=== PATIENT | female | born 1975 | race Caucasian/White ===

== ENCOUNTER → 2023-10-18 11:58 | Outpatient (REF) | payer OTHER, SELFPAY | LOC: HWWDC 11:58 | PROVIDERS: ATTENDING PHYSICIAN Nurse Practitioner | DX: Z12.31 Encounter for screening mammogram for malignant neoplasm of breast (principal) | CPT/HCPCS: 77063; 77067 ==

== ENCOUNTER → 2023-11-02 14:34 | Outpatient (REF) | payer OTHER, SELFPAY | LOC: HWRAD 14:34 | PROVIDERS: ATTENDING PHYSICIAN Nurse Practitioner | DX: M25.572 Pain in left ankle and joints of left foot (principal) | CPT/HCPCS: 73630 ==

== ENCOUNTER → 2023-11-03 09:25 | Outpatient (REF) | payer OTHER, SELFPAY | LOC: RAD 09:25 | PROVIDERS: ATTENDING PHYSICIAN Internal Medicine Gastroenterology; FAMILY PHYSICIAN Nurse Practitioner | DX: D50.9 Iron deficiency anemia, unspecified (principal) | CPT/HCPCS: 74246; 74248 ==

== ENCOUNTER → 2024-12-12 12:59 | Outpatient (REF) | payer OTHER, SELFPAY | LOC: WDC 12:59 | PROVIDERS: ATTENDING PHYSICIAN Obstetrics & Gynecology Gynecology; FAMILY PHYSICIAN Nurse Practitioner | DX: Z12.31 Encounter for screening mammogram for malignant neoplasm of breast (principal) | CPT/HCPCS: 77063; 77067 ==